=== PATIENT | male | born 1965 | race Two or more races ===

== ENCOUNTER 2022-07-26 18:52 | Emergency (ER) | payer OTHER ==
[2022-07-26 18:58] VITALS: BP 104/74; PULSE 89; RESP 18; TEMP 98.1; BMI 26.3
[2022-07-26] MEDS ORDERED: IBUPROFEN 400 MG TABLET (FP) PO ONE ×2 (21:18→21:29)
[2022-07-26] MEDS ORDERED: CYCLOBENZAPRINE HCL 10 MG TABLET (FP) PO ONE (21:18)
[2022-07-26] MEDS ORDERED: CYCLOBENZAPRINE HCL 10 MG TABLET (FP) ONE (21:29)
== END 2022-07-26 22:35 | disposition home or self-care (01) ==
LOC: JER 18:52 → JERFT 18:52
DX: S39.012A Strain of muscle, fascia and tendon of lower back, initial encounter (principal); V87.7XXA Person injured in collision between other specified motor vehicles (traffic), initial encounter
CPT/HCPCS: 73130-TC-RT-FY; 99283-25

== ENCOUNTER 2025-01-28 07:48 | Day surgery (SDC) | payer OTHER ==
[2025-01-27 12:09] VITALS: BMI 25.4
[2025-02-01 09:43] VITALS: RESP 18; TEMP 98
[2025-02-01 09:46] VITALS: BP 140/74; PULSE 68
== END 2025-01-28 11:15 | disposition home or self-care (01) ==
LOC: FASU-ENDO 07:48
PROVIDERS: ATTEND Internal Medicine Gastroenterology
PROC: 0DBK8ZX Excision of Ascending Colon, Via Natural or Artificial Opening Endoscopic, Diagnostic (ICD-10-PCS; 2025-01-28)
PROC: 0DBP8ZX Excision of Rectum, Via Natural or Artificial Opening Endoscopic, Diagnostic (ICD-10-PCS; 2025-01-28)
PROC: 0DBN8ZX Excision of Sigmoid Colon, Via Natural or Artificial Opening Endoscopic, Diagnostic (ICD-10-PCS; principal; 2025-01-28 09:53)
DX: Z12.11 Encounter for screening for malignant neoplasm of colon (principal); D12.5 Benign neoplasm of sigmoid colon; D12.8 Benign neoplasm of rectum; K63.5 Polyp of colon; K64.0 First degree hemorrhoids
CPT/HCPCS: 82962; 88305-TC